=== PATIENT | male | born 1995 | race Caucasian/White ===

== ENCOUNTER 2020-04-30 19:46 | Inpatient (IN) | payer OTHER ==
[2020-04-30] MEDS ORDERED: SODIUM CHLORIDE 1,905 ML IV ONE (20:16)
[2020-04-30 21:05] LABS: BASO % 0.2 % (0-2.0); EOS % 0.4 % (0-4.5); HEMATOCRIT 37.5 % (35.4-49); HEMOGLOBIN 12.9 GM/dL (11.7-16.9); LYMPH % 3.9 % (8-40); MCH 31.2 pg (25.7-33.7); MCHC 34.2 g/dl (32.0-35.9); MEAN PLT VOLUME 6.9 fl (7.5-11.1); MONO % 7.7 % (3.8-10.2); NEUT % 87.8 % (42.8-82.8); PLATELET COUNT 250 K/MM3 (134-434); RBC 4.12 M/mm3 (4.00-5.60); RDW 13.1 % (11.9-15.9); WHITE BLOOD COUNT 10.8 K/mm3 (4.0-10.0)
[2020-04-30 21:11] LABS: INR 1.24 (0.83-1.09); PROTHROMBIN TIME (PATIENT) 14.7 SEC (9.7-13.0)
[2020-04-30 21:14] LABS: ACTIVATED PTT 31.8 SECONDS (25.2-36.5)
[2020-04-30 21:44] LABS: ALBUMIN 3.4 g/dl (3.4-5.0); ALK PHOS 120 U/L (45-117); ANION GAP 15 MMOL/L (8-16); BILIRUBIN,TOTAL 0.5 mg/dL (0.2-1); BLOOD UREA NITROGEN 7.7 mg/dL (7-18); CALCIUM 8.7 mg/dL (8.5-10.1); CHLORIDE 98 mmol/L (98-107); CO2 23 mmol/L (21-32); CREATININE 0.6 mg/dL (0.55-1.3); GLUCOSE,RANDOM 106 mg/dL (74-106); POTASSIUM 3.2 mmol/L (3.5-5.1); SGOT/AST 11 U/L (15-37); SGPT/ALT 35 U/L (13-61); SODIUM 136 mmol/L (136-145); TOT PROT 6.9 g/dl (6.4-8.2)
--- NOTE | 2020-04-30 21:49 | PDOC ---
History of Present Illness - General Chief Complaint: SIRS, Suspected/Possible Stated Complaint: FEVER BACK PAIN Time Seen by Provider: 04/30/20 19:53 - History of Present Illness Initial Comments: César Chamberlain is a 25 y/o male with PMH significant for C2 and C7 fracture, paraplegia, sent in from [facility]. Reports that he has had a fever since yesterday and low back pain. Otherwise reports that his lack of sensation his baseline. No dysuria. Denies chest pain/shortness of breath. Denies nausea/vomiting. Denies abd pain. Unable to assess lower extremities. Past History - Medical History Allergies/Adverse Reactions: Allergies Allergy/AdvReac Type Severity Reaction Status Date / Time No Known Allergies Allergy Verified 04/30/20 19:52 Home Medications: Ambulatory Orders Aa/Hydrolyzed Collagen, Whey [Lps 15-30 Liquid] 30 ml PO BID 05/01/20 Docusate Sodium [Colace -] 300 mg PO HS 05/01/20 Duloxetine HCl [Cymbalta -] 40 mg PO DAILY 05/01/20 Gabapentin [Neurontin -] 400 mg PO Q8H 05/01/20 Ipratropium/Albuterol Sulfate [Iprat-Albut 0.5-3(2.5) mg/3 ml] 3 ml PO TID 05/01/20 Lactulose 20 ml PO BID PRN 05/01/20 Lidocaine [Aspercreme Lidocaine] 1 patch TD DAILY 05/01/20 Mag Hydrox/Al Hydrox/Simeth [Mylanta Oral Suspension -] 30 ml PO TID PRN 05/01/20 Omeprazole Magnesium [Prilosec Otc] 20 mg PO DAILY 05/01/20 Ondansetron [Zofran -] 4 mg PO TID PRN 05/01/20 Polyethylene Glycol 3350 [Miralax (For Bowel Prep) -] 17 gm PO DAILY PRN 05/01/20 Sennosides [Senna] 2 tab PO DAILY PRN 05/01/20 Sodium Phosphate,Zavala-Dibasic [Fleet Enema] 1 can MO DAILY 05/01/20 Tamsulosin HCl [Flomax -] 0.8 mg PO DAILY 05/01/20 Tizanidine HCl [Zanaflex (Nf) -] 4 mg PO Q8H 05/01/20 COPD: No Other medical history: 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 - Surgical History Neurologic Surgery: Yes - Psycho-Social/Smoking History Smoking History: Never smoked - Substance Abuse Hx (Audit-C & DAST Scrn) How often the patient has a drink containing alcohol: Never Score: In Men: 4 or > Positive; In Women: 3 or > Positive: 0 Screen Result (Pos requires Nsg. Audit-10AR): Negative In the last yr the pt used illegal drug/Rx for NonMed reason: No Score: Yes response is considered Positive: 0 Screen Result (Positive result requires Nsg. DAST-10): Negative Review of Systems - Review of Systems Comments:: GENERAL/CONSTITUTIONAL: Reports fever. No weakness._ HEAD, EYES, EARS, NOSE AND THROAT: No change in vision. No change in hearing. No sore throat._ CARDIOVASCULAR: No chest pain or shortness of breath_ RESPIRATORY: Denies cough, hemoptysis_ GASTROINTESTINAL: No nausea, vomiting, diarrhea or constipation._ GENITOURINARY: No dysuria, frequency, or change in urination._ MUSCULOSKELETAL: Reports low back pain. SKIN: No rash_ NEUROLOGIC: No headache, vertigo, loss of consciousness, or change in strength/sensation._ ENDOCRINE: No increased thirst. No abnormal weight change_ HEMATOLOGIC/LYMPHATIC: No anemia, easy bleeding, or history of blood clots._ ALLERGIC/IMMUNOLOGIC: No hives or skin allergy._ *Physical Exam - Vital Signs Last Vital Signs Temp Pulse Resp BP Pulse Ox 102.9 F H 135 H 20 112/70 96 04/30/20 19:49 04/30/20 19:49 04/30/20 19:49 04/30/20 19:49 04/30/20 19:49 - Physical Exam GENERAL: Awake, alert, and oriented to person/place/time, in no acute distress_ HEAD: No signs of trauma, normocephalic, atraumatic _ EYES: PERRLA, EOMI, sclera anicteric, conjunctiva clear_ ENT: Hearing grossly normal, nares patent, oropharynx clear without exudates. No uvular deviation. Moist mucosa_ NECK: Normal ROM, supple, no lymphadenopathy, JVD, or masses_ LUNGS: No distress, speaks in full sentences, clear to auscultation bilaterally _ HEART: Regular rate and rhythm, normal S1 and S2, no murmurs appreciated, pe ripheral pulses normal and equal bilaterally._ ABDOMEN: Soft, nontender, normoactive bowel sounds. No guarding, no rebound. No masses_ BACK: Mild bilateral CVA TTP. EXTREMITIES: Contracted bilateral lower extremities. Decreased sensation at baseline. NEUROLOGICAL: Cranial nerves II through XII grossly intact. Normal speech, no change in sensory or motor function. SKIN: Warm, Dry, normal turgor, no rashes or lesions noted_ ED Treatment Course - LABORATORY CBC & Chemistry Diagram: 05/02/20 09:25 05/02/20 09:25 - ADDITIONAL ORDERS Additional order review: Laboratory Results 04/30/20 04/30/20 20:00 20:00 PT with INR 14.70 H INR 1.24 H PTT (Actin FS) 31.8 Sodium 136 Potassium 3.2 L Chloride 98 Carbon Dioxide 23 Anion Gap 15 BUN 7.7 Creatinine 0.6 Est GFR (CKD-EPI)AfAm 160.83 Est GFR (CKD-EPI)NonAf 138.76 Random Glucose 106 Calcium 8.7 Total Bilirubin 0.5 AST 11 L ALT 35 Alkaline Phosphatase 120 H Troponin I < 0.02 Total Protein 6.9 Albumin 3.4 04/30/20 20:00 RBC 4.12 MCV 91.0 MCHC 34.2 RDW 13.1 MPV 6.9 L Neutrophils % 87.8 H Lymphocytes % 3.9 L Monocytes % 7.7 Eosinophils % 0.4 Basophils % 0.2 - RADIOLOGY Radiology Studies Ordered: Category Date Time Status CHEST X-RAY PORTABLE* [RAD] Stat Radiology 04/30/20 20:16 Taken Medical Decision Making - Medical Decision Making 25M c2 and c7 fx paraplegia presenting today with fever and bilateral CVA ttp. -sepsis work up 04/30/20 21:49 CXR shows spinal hardware in place, otherwise negative for acute intra thoracic pathology. 04/30/20 22:57 Labs and UA reviewed. Laboratory Last Values WBC 10.8 K/mm3 (4.0-10.0) H 04/30/20 20:00 RBC 4.12 M/mm3 (4.00-5.60) 04/30/20 20:00 Hgb 12.9 GM/dL (11.7-16.9) 04/30/20 20:00 Hct 37.5 % (35.4-49) 04/30/20 20:00 MCV 91.0 fl (80-96) 04/30/20 20:00 MCH 31.2 pg (25.7-33.7) 04/30/20 20:00 MCHC 34.2 g/dl (32.0-35.9) 04/30/20 20:00 RDW 13.1 % (11.9-15.9) 04/30/20 20:00 Plt Count 250 K/MM3 (134-434) 04/30/20 20:00 MPV 6.9 fl (7.5-11.1) L 04/30/20 20:00 Absolute Neuts (auto) 9.5 K/mm3 (1.5-8.0) H 04/30/20 20:00 Neutrophils % 87.8 % (42.8-82.8) H 04/30/20 20:00 Lymphocytes % 3.9 % (8-40) L 04/30/20 20:00 Monocytes % 7.7 % (3.8-10.2) 04/30/20 20:00 Eosinophils % 0.4 % (0-4.5) 04/30/20 20:00 Basophils % 0.2 % (0-2.0) 04/30/20 20:00 Nucleated RBC % 0 % (0-0) 04/30/20 20:00 PT with INR 14.70 SEC (9.7-13.0) H 04/30/20 20:00 INR 1.24 (0.83-1.09) H 04/30/20 20:00 PTT (Actin FS) 31.8 SECONDS (25.2-36.5) 04/30/20 20:00 Sodium 136 mmol/L (136-145) 04/30/20 20:00 Potassium 3.2 mmol/L (3.5-5.1) L 04/30/20 20:00 Chloride 98 mmol/L (98-107) 04/30/20 20:00 Carbon Dioxide 23 mmol/L (21-32) 04/30/20 20:00 Anion Gap 15 MMOL/L (8-16) 04/30/20 20:00 BUN 7.7 mg/dL (7-18) 04/30/20 20:00 Creatinine 0.6 mg/dL (0.55-1.3) 04/30/20 20:00 Est GFR (CKD-EPI)AfAm 160.83 04/30/20 20:00 Est GFR (CKD-EPI)NonAf 138.76 04/30/20 20:00 Random Glucose 106 mg/dL (74-106) 04/30/20 20:00 Lactic Acid 2.6 mmol/L (0.4-2.0) H* 04/30/20 20:00 Calcium 8.7 mg/dL (8.5-10.1) 04/30/20 20:00 Total Bilirubin 0.5 mg/dL (0.2-1) 04/30/20 20:00 AST 11 U/L (15-37) L 04/30/20 20:00 ALT 35 U/L (13-61) 04/30/20 20:00 Alkaline Phosphatase 120 U/L (45-117) H 04/30/20 20:00 Troponin I < 0.02 ng/ml (0.00-0.05) 04/30/20 20:00 Total Protein 6.9 g/dl (6.4-8.2) 04/30/20 20:00 Albumin 3.4 g/dl (3.4-5.0) 04/30/20 20:00 Urine Color Yellow 04/30/20 21:00 Urine Appearance Cloudy 04/30/20 21:00 Urine pH 6.5 (5.0-8.0) 04/30/20 21:00 Ur Specific [place] 1.009 (1.010-1.035) L 04/30/20 21:00 Urine Protein 1+ (NEGATIVE) H 04/30/20 21:00 Urine Glucose (UA) Negative (NEGATIVE) 04/30/20 21:00 Urine Ketones Negative (NEGATIVE) 04/30/20 21:00 Urine Blood 2+ (NEGATIVE) H 04/30/20 21:00 Urine Nitrite Positive (NEGATIVE) H 04/30/20 21:00 Urine Bilirubin Negative (NEGATIVE) 04/30/20 21:00 Urine Urobilinogen 1.0 mg/dL (0.2-1.0) 04/30/20 21:00 Ur Leukocyte Esterase 3+ (NEGATIVE) H 04/30/20 21:00 Urine WBC (Auto) 452 /uL (0-25.8) 04/30/20 21:00 Urine RBC (Auto) 16 /uL (0-23.9) 04/30/20 21:00 Urine Casts (Auto) 0 /uL (0-3.1) 04/30/20 21:00 U Epithel Cells (Auto) 1 /uL (0-25.1) 04/30/20 21:00 Urine Bacteria (Auto) >10,000 /uL (0-1359) 04/30/20 21:00 Zosyn started. 05/01/20 0030 D/w inpatient team who accepts the patient for admission. Discharge - Discharge Information Problems reviewed: Yes Clinical Impression/Diagnosis: Sepsis, UTI (urinary tract infection) Condition: Stable - Admission Yes - Follow up/Referral - Patient Discharge Instructions - Post Discharge Activity
[2020-04-30 22:09] LABS: EPI CELLS 1 /uL (0-25.1); HYALINE CASTS 0 /uL (0-3.1); PH,URINE 6.5 (5.0-8.0); URINE APPEARANCE CLOUDY; URINE BILIRUBIN NEGATIVE (NEGATIVE); URINE COLOR YELLOW; URINE GLUCOSE (UA) NEGATIVE (NEGATIVE); URINE KETONE NEGATIVE (NEGATIVE); URINE LEUK ESTERASE 3+ (NEGATIVE); URINE NITRITE POSITIVE (NEGATIVE); URINE PROTEIN 1+ (NEGATIVE); URINE RBC 16 /uL (0-23.9); URINE WBC 452 /uL (0-25.8)
[2020-04-30] MEDS ORDERED: PIPERACILLIN/TAZOB 4.5 GM 4.5 GM in DEXTROSE 5%-WATER 100 ML IVPB ONE (22:27)
--- NOTE | 2020-04-30 22:34 | PDOC ---
Documentation entered by Daniela Zeng SCRIBE, acting as scribe for Juan Sage MD. Juan Sage MD: This documentation has been prepared by the Karri bonilla Brenda, SCRIBE, under my direction and personally reviewed by me in its entirety. I confirm that the documentation accurately reflects all work, treatment, procedures, and medical decision making performed by me. Attending Attestation - Resident Resident Name: Dax Aiken - ED Attending Attestation I have performed the following: I have examined & evaluated the patient, The case was reviewed & discussed with the resident, I agree w/resident's findings & plan, Exceptions are as noted - HPI HPI: 04/30/20 21:43 The patient is a 25 year old female, with a significant PMH of paraplegia who presents to the emergency department [facility] from Rehab for evaluation of a subjective fever and lower back pain for 1 day. The patient reports being incontinent At baseline, He does endorse minimal sensation in the lower extremities. He denies any other symptoms including dysuria, foul-smelling urine, diarrhea, abdominal pain, chest pain, cough, lightheadedness, sore throat, Headache, neck pain. Allergies: NKA - Physicial Exam PE: 04/30/20 22:24 GENERAL: The patient is awake, alert, and fully oriented, Nontoxic - in no acute distress. HEAD: Normocephalic, atraumatic. EYES: extraocular movements intact, sclera anicteric, conjunctiva clear. ENT: Normal voice, Moist mucous membranes. NECK: Normal range of motion, supple LUNGS: Breath sounds equal, clear to auscultation bilaterally. No wheezes, no rhonchi, no rales. HEART: Regular rate and rhythm, normal S1 and S2 without murmur, rub or gallop. ABDOMEN: Soft, nontender, No guarding, no rebound. Mild right CVA tenderness EXTREMITIES: No obvious wounds or ulcers Back:, No erythema, fluctuance, areas of focal tenderness. NEUROLOGICAL: No facial assymetry, Normal speech, PSYCH: Normal mood, normal affect. SKIN: Hot to touch, Dry, normal turgor,No sacral decubitus ulcers appreciated - Medical Decision Making 04/30/20 21:40 25y M hx of spina fx cb paraplegia presents with fever and lower back pain. Pt usually incontinent and insensatem wears dipers. [facility] 04[facility] 22:24 Differential includes possible pyelonephritis, no clinical signs of spinal epidural abscess, Or wounds. Seracult pneumonia No clinical signs of Meningitis Sepsis order set obtained we will give the patient Tylenol, fluids, will reassess 04/30/20 22:25 Patient's UA consistent with UTI likely Pyelonephritis with a CVA tenderness will start antibiotics admit for further management. Heart Score/ECG Review - ECG Impressions Comment:: 05/01/20 00:15 Twelve-lead EKG was performed and reviewed by me. There is normal sinus rhythm with a Rate of [address] changes suggestive of acute ischemia Impression: Sinus tachycardia Discharge - Discharge Information Problems reviewed: Yes Clinical Impression/Diagnosis: Sepsis Qualifiers: Sepsis type: sepsis due to unspecified organism Sepsis acute organ dysfunction status: unspecified Qualified Code(s): A41.9 - Sepsis, unspecified organism UTI (urinary tract infection) Qualifiers: Urinary tract infection type: acute pyelonephritis Qualified Code(s): N10 - Acute pyelonephritis Condition: Stable - Follow up/Referral - Patient Discharge Instructions - Post Discharge Activity
[2020-04-30] MEDS ORDERED: PIPERACILLIN/TAZOB 4.5 GM 4.5 GM/100 ML BAG IVPB ONE (22:37)
--- NOTE | 2020-05-01 00:03 | PN ---
Teaching Attending Note Name of Resident: Ro Lehman ATTENDING PHYSICIAN STATEMENT I saw and evaluated the patient. I reviewed the resident's note and discussed the case with the resident. I agree with the resident's findings and plan as documented. SUBJECTIVE: Patient is a 25 year old woman with a PMH of Paraplegia (?C2, C7 fracture) and GERD who presents to the ER from [facility] for evaluation of a fever and lower back pain for 1 day. The patient reports being incontinent at baseline, wears diapers and has minimal sensation in the lower extremities. Denies dysuria, foul-smelling urine, diarrhea, abdominal pain, chest pain, SOB, cough, lightheadedness, sore throat, headache or neck pain. Denies alcohol, tobacco or illicit drug use. No sick contacts or recent travels. Family history is unremarkable. OBJECTIVE: Alert Vital Signs Period Temp Pulse Resp BP Sys/Yoo Pulse Ox Last 24 Hr 99.2 F-102.9 F 115-135 20-20 112-128/70-76 96-96 HEENT: No Jaundice, eye redness or discharge, PERRLA, EOMI. Normocephalic, atraumatic. External ears are normal and hearing is grossly intact. No nasal discharge. Neck: Supple, nontender. No palpable adenopathy or thyromegaly. No JVD Chest: Good effort. Clear to auscultation and percussion. Heart: Regular. No S3, rub or murmur Abdomen: Not distended, soft, left CVAT and no HSM. No rebound or guarding. Normal bowel sounds. Ext: Peripheral pulses intact. No leg edema. Skin: Warm and dry. No petechiae, rash or ecchymosis. Neuro: Alert. Oriented x3. CN 2-12 grossly intact. Paraplegia. Psych: Appropriate mood and affect. Good insight. Abnormal Lab Results 04/30/20 04/30/20 04/30/20 20:00 20:00 20:00 WBC 10.8 H MPV 6.9 L Absolute Neuts (auto) 9.5 H Neutrophils % 87.8 H Lymphocytes % 3.9 L PT with INR 14.70 H INR 1.24 H Potassium 3.2 L Lactic Acid AST 11 L Alkaline Phosphatase 120 H Ur Specific [place] Urine Protein Urine Blood Urine Nitrite Ur Leukocyte Esterase 07/03/20 07/03/20 20:00 21:00 WBC MPV Absolute Neuts (auto) Neutrophils % Lymphocytes % PT with INR INR Potassium Lactic Acid 2.6 H* AST Alkaline Phosphatase Ur Specific [place] 1.009 L Urine Protein 1+ H Urine Blood 2+ H Urine Nitrite Positive H Ur Leukocyte Esterase 3+ H Current Medications Generic Name Dose Route Start Last Admin Trade Name Sudeepq PRN Reason Stop Dose Admin Enoxaparin Sodium 40 mg 05/01/20 10:00 Lovenox - SQ DAILY KAYLEE Sodium Chloride 1,000 mls @ 100 mls/hr 05/01/20 02:00 05/01/20 02:24 Normal Saline - IV 100 mls/hr ASDIR KAYLEE Administration Piperacillin Sod/Tazobactam 50 mls @ 100 mls/hr 05/01/20 02:00 Sod 3.375 gm/ Dextrose IVPB Q8H-IV KAYLEE Protocol Piperacillin Sod/Tazobactam 50 mls @ 100 mls/hr 05/01/20 02:00 05/01/20 02:24 Sod 3.375 gm/ Dextrose IVPB 05/01/20 18:29 100 mls/hr Q8H-IV KAYLEE Administration Protocol ASSESSMENT AND PLAN: 1. Sepsis due to Pyelonephritis - CXR shows spinal hardware in place but no evidence of acute lung disease. Sepsis workup done. Patient started on IV Zosyn and IV NS according to sepsis protocol. Will trend lactic acid. Hypokalemia is unexplained. Will check serum magnesium, give IV and PO KCL. Will get kidney sonogram to evaluate for possible abscess. Viral testing for COVID-19 ordered and patient placed on airborne, droplet and contact isolation. EKG shows sinus tachycardia at 105/minute and QTc [address]-T wave changes. Initial troponin is negative. Will continue comprehensive care for all of patients comorbid conditions including paraplegia care - frequent repositioning to avoid decubitus ulcers. 2. DVT prophylaxis - Lovenox 40 mg SQ q 24 hours. 3. Advance directives - Full code
[2020-05-01] MEDS ORDERED: PIPERACILLIN/TAZOB 3.375 GM 3.375 GM in DEXTROSE 5%-WATER - 50 ML IVPB SCH (02:00)
[2020-05-01] MEDS ORDERED: PIPERACILLIN/TAZOB 3.375 GM 3.375 GM/50 ML BAG IVPB ONE ×3 (02:19→18:07)
[2020-05-01] MEDS: PIPERACILLIN/TAZOB 3.375 GM 3.375 GM in DEXTROSE 5%-WATER - 50 ML IVPB SCH ×3 (02:24→18:14)
[2020-05-01] MEDS: SODIUM CHLORIDE 1,000 ML IV SCH (02:24)
--- NOTE | 2020-05-01 04:19 | HP ---
CHIEF COMPLAINT: lower abdominal pain PCP: HISTORY OF PRESENT ILLNESS: 25 yo M PMH herbie paraplegia, GERD, C2-C7 fx [facility] of fever and lower abdominal pain. pt is unable to provide full history but does endorse lower abdominal pain. he denies chest pain or shortness of breath. denies any sensory deficits in extremities. ER course was notable for: (1) NS (2)Zosyn (3)+UA PAST MEDICAL HISTORY: see HPI PAST SURGICAL HISTORY: unknown Allergies No Known Allergies Allergy (Verified 04/30/20 19:52) HOME MEDICATIONS: REVIEW OF SYSTEMS CONSTITUTIONAL: Present: fever Absent: fever, chills, diaphoresis, generalized weakness, malaise, loss of appetite, weight change HEENT: Absent: rhinorrhea, nasal congestion, throat pain, throat swelling, difficulty swallowing, mouth swelling, ear pain, eye pain, visual changes CARDIOVASCULAR: Absent: chest pain, syncope, palpitations, irregular heart rate, lightheadedness, peripheral edema RESPIRATORY: Absent: cough, shortness of breath, dyspnea with exertion, orthopnea, wheezing, stridor, hemoptysis GASTROINTESTINAL: Absent: abdominal pain, abdominal distension, nausea, vomiting, diarrhea, constipation, melena, hematochezia GENITOURINARY: Absent: dysuria, frequency, urgency, hesitancy, hematuria, flank pain, genital pain MUSCULOSKELETAL: Absent: myalgia, arthralgia, joint swelling, back pain, neck pain SKIN: Absent: rash, itching, pallor HEMATOLOGIC/IMMUNOLOGIC: Absent: easy bleeding, easy bruising, lymphadenopathy, frequent infections ENDOCRINE: Absent: unexplained weight gain, unexplained weight loss, heat intolerance, cold intolerance NEUROLOGIC: Absent: headache, focal weakness or paresthesias, dizziness, unsteady gait, seizure, mental status changes, bladder or bowel incontinence PHYSICAL EXAMINATION Vital Signs - 24 hr 04/30/20 04/30/20 05/01/20 19:49 22:34 03:03 Temperature 102.9 F H 99.2 F Pulse Rate 135 H Pulse Rate [ 115 H 105 H Right] Respiratory 20 20 18 Rate Blood Pressure 112/70 Blood Pressure 128/76 106/68 [Right Arm] O2 Sat by Pulse 96 96 97 Oximetry (%) GENERAL: Awake, alert, and fully oriented, in no acute distress. HEAD: Normal with no signs of trauma. LUNGS: Breath sounds equal, clear to auscultation bilaterally. No accessory muscle use. HEART: Regular rate and rhythm, normal S1 and S2 without murmur, rub or gallop. ABDOMEN: Soft, nontender, not distended, normoactive bowel sounds, no guarding, no rebound, no masses. UPPER EXTREMITIES: 2+ pulses, warm, well-perfused. No cyanosis. No clubbing. No peripheral edema. LOWER EXTREMITIES: 2+ pulses, warm, well-perfused. No calf tenderness. No peripheral edema. SKIN: Warm, dry, normal turgor, no rashes or lesions noted, normal capillary refill. Laboratory Last Values WBC 10.8 K/mm3 (4.0-10.0) H 04/30/20 20:00 RBC 4.12 M/mm3 (4.00-5.60) 04/30/20 20:00 Hgb 12.9 GM/dL (11.7-16.9) 04/30/20 20:00 Hct 37.5 % (35.4-49) 04/30/20 20: MCV 91.0 fl (80-96) 04/30/20 20:00 MCH 31.2 pg (25.7-33.7) 04/30/20 20: MCHC 34.2 g/dl (32.0-35.9) 04/30/20 20:00 RDW 13.1 % (11.9-15.9) 04/30/20 20:00 Plt Count 250 K/MM3 (134-434) 04/30/20 20:00 MPV 6.9 fl (7.5-11.1) L 04/30/20:00 Absolute Neuts (auto) 9.5 K/mm3 (1.5-8.0) H 04/30/20 20:00 Neutrophils % 87.8 % (42.8-82.8) H 04/30/20 20:00 Lymphocytes % 3.9 % (8-40) L 04/30/20 20:00 Monocytes % 7.7 % (3.8-10.2) 04/30/20 20:00 Eosinophils % 0.4 % (0-4.5) 04/30/20 20: Basophils % 0.2 % (0-2.0) 04/30/20 20:00 Nucleated RBC % 0 % (0-0) 04/30/20 20:00 PT with INR 14.70 SEC (9.7-13.0) H 04/30/20 20:00 INR 1.24 (0.83-1.09) H 04/30/20 20:00 PTT (Actin FS) 31.8 SECONDS (25.2-36.5) 04/30/20 20:00 Sodium 136 mmol/L (136-145) 04/30/20 20:00 Potassium 3.2 mmol/L (3.5-5.1) L 04/30/20 20:00 Chloride 98 mmol/L (98-107) 04/30/20 20:00 Carbon Dioxide 23 mmol/L (21-32) 04/30/20 20:00 Anion Gap 15 MMOL/L (8-16) 04/30/20 20:00 BUN 7.7 mg/dL (7-18) 04/30/20 20:00 Creatinine 0.6 mg/dL (0.55-1.3) 04/30/20 20:00 Est GFR (CKD-EPI)AfAm 160.83 04/30/20 20:00 Est GFR (CKD-EPI)NonAf 138.76 04/30/20 20:00 Random Glucose 106 mg/dL (74-106) 04/30/20 20:00 Lactic Acid 1.4 mmol/L (0.4-2.0) 05/01/20 02:12 Calcium 8.7 mg/dL (8.5-10.1) 04/30/20 20:00 Total Bilirubin 0.5 mg/dL (0.2-1) 04/30/20 20:00 AST 11 U/L (15-37) L 04/30/20 20:00 ALT 35 U/L (13-61) 04/30/20 20:00 Alkaline Phosphatase 120 U/L (45-117) H 04/30/20 20:00 Troponin I < 0.02 ng/ml (0.00-0.05) 04/30/20 20:00 Total Protein 6.9 g/dl (6.4-8.2) 04/30/20 20:00 Albumin 3.4 g/dl (3.4-5.0) 04/30/20 20:00 Urine Color Yellow 04/30/20 21:00 Urine Appearance Cloudy 04/30/20 21:00 Urine pH 6.5 (5.0-8.0) 04/30/20 21:00 Ur Specific [place] 1.009 (1.010-1.035) L 04/30/20 21:00 Urine Protein 1+ (NEGATIVE) H 04/30/20 21:00 Urine Glucose (UA) Negative (NEGATIVE) 04/30/20 21:00 Urine Ketones Negative (NEGATIVE) 04/30/20 21:00 Urine Blood 2+ (NEGATIVE) H 04/30/20 21:00 Urine Nitrite Positive (NEGATIVE) H 04/30/20 21:00 Urine Bilirubin Negative (NEGATIVE) 04/30/20 21:00 Urine Urobilinogen 1.0 mg/dL (0.2-1.0) 04/30/20 21:00 Ur Leukocyte Esterase 3+ (NEGATIVE) H 04/30/20 21:00 Urine WBC (Auto) 452 /uL (0-25.8) 04/30/20 21:00 Urine RBC (Auto) 16 /uL (0-23.9) 04/30/20 21:00 Urine Casts (Auto) 0 /uL (0-3.1) 04/30/20 21:00 U Epithel Cells (Auto) 1 /uL (0-25.1) 04/30/20 21:00 Urine Bacteria (Auto) >10,000 /uL (0-1359) 04/30/20 21:00 ASSESSMENT/PLAN: 25 yo M PMH herbie paraplegia, GERD, C2-C7 fx BIB[facility] from [facility] for 1 day of fever and lower abdominal pain. pt is admitted for pyelonephritis Sepsis 2/2 pyelonephritis - lactic acidosis , leukocytosis, febrile - + UA noted - pending BCx, UCx - pending renal sonogram to assess severity / abscess - ID consult - c/w IVF . c/w Zosyn - lactic acidosis improved F/E/N - IV NS @ 100 cc - monitor lytes - watch K, 40 Kdur given DVT ppx: lovenox 40 Dispo: admit to medicine Visit type - Emergency Visit Emergency Visit: Yes ED Registration Date: 05/01/20 Care time: The patient presented to the Emergency Department on the above date and was hospitalized for further evaluation of their emergent condition. - New Patient This patient is new to me today: Yes - Critical Care Critical Care patient: No ATTENDING PHYSICIAN STATEMENT I saw and evaluated the patient. I reviewed the resident's note and discussed the case with the resident. I agree with the resident's findings and plan as documented. SUBJECTIVE: OBJECTIVE: ASSESSMENT AND PLAN:
[2020-05-01] MEDS ORDERED: POTASSIUM CHLORIDE TABS 20 MEQ TABLET.ER (FP) PO ONE ×2 (04:35→06:09)
[2020-05-01 07:40] LABS: BASO % 0.2 % (0-2.0); EOS % 0.4 % (0-4.5); HEMATOCRIT 37.6 % (35.4-49); HEMOGLOBIN 12.6 GM/dL (11.7-16.9); LYMPH % 11.2 % (8-40); MCH 30.4 pg (25.7-33.7); MCHC 33.6 g/dl (32.0-35.9); MEAN CELL VOLUME 90.7 fl (80-96); MEAN PLT VOLUME 6.7 fl (7.5-11.1); MONO % 11.2 % (3.8-10.2); PLATELET COUNT 285 K/MM3 (134-434); RBC 4.15 M/mm3 (4.00-5.60); RDW 13.2 % (11.9-15.9)
[2020-05-01 08:04] LABS: ALBUMIN 3.1 g/dl (3.4-5.0); BLOOD UREA NITROGEN 5.4 mg/dL (7-18); CALCIUM 8.7 mg/dL (8.5-10.1); MAGNESIUM 2.5 mg/dL (1.8-2.4); POTASSIUM 4.1 mmol/L (3.5-5.1)
[2020-05-01 08:08] LABS: BILIRUBIN,TOTAL 0.5 mg/dL (0.2-1); CREATININE 0.5 mg/dL (0.55-1.3); PHOSPHOROUS 3.5 mg/dL (2.5-4.9); TOT PROT 6.6 g/dl (6.4-8.2)
[2020-05-01] MEDS ORDERED: ENOXAPARIN NA (PORCINE) 40 MG/0.4 ML DISP.SYRIN SQ ONE (10:24)
[2020-05-01] MEDS: ENOXAPARIN NA (PORCINE) 40 MG/0.4 ML DISP.SYRIN SQ SCH (10:39)
[2020-05-02] MEDS ORDERED: ACETAMINOPHEN 325 MG TABLET (FP) PO PRN (02:04)
[2020-05-02] MEDS: ACETAMINOPHEN 325 MG TABLET (FP) PO PRN (02:27)
[2020-05-02] MEDS: SODIUM CHLORIDE 1,000 ML IV SCH ×2 (02:29→21:48)
[2020-05-02] MEDS: ENOXAPARIN NA (PORCINE) 40 MG/0.4 ML DISP.SYRIN SQ SCH (09:23)
[2020-05-02 09:35] LABS: BASO % 0.3 % (0-2.0); EOS % 0.6 % (0-4.5); HEMATOCRIT 38.2 % (35.4-49); LYMPH % 12.9 % (8-40); MCH 30.9 pg (25.7-33.7); MCHC 34.1 g/dl (32.0-35.9); MEAN CELL VOLUME 90.7 fl (80-96); MEAN PLT VOLUME 6.8 fl (7.5-11.1); MONO % 13.1 % (3.8-10.2); NEUT % 73.1 % (42.8-82.8); PLATELET COUNT 310 K/MM3 (134-434); RBC 4.21 M/mm3 (4.00-5.60); RDW 12.9 % (11.9-15.9); WHITE BLOOD COUNT 12.6 K/mm3 (4.0-10.0)
[2020-05-02] MEDS ORDERED: cefTRIAXone SODIUM 1 GM VIAL ONE (09:57)
[2020-05-02] MEDS ORDERED: DEXTROSE 5%-WATER - 50 ML IVPB ONE (09:57)
[2020-05-02] MEDS ORDERED: CEFTRIAXONE 1 GM in DEXTROSE 5%-WATER - 50 ML IVPB ONE (10:00)
[2020-05-02 10:02] LABS: ALBUMIN 3.2 g/dl (3.4-5.0); BLOOD UREA NITROGEN 7.4 mg/dL (7-18); CALCIUM 9.1 mg/dL (8.5-10.1); POTASSIUM 3.7 mmol/L (3.5-5.1)
[2020-05-02 10:07] LABS: BILIRUBIN,TOTAL 0.7 mg/dL (0.2-1); CREATININE 0.4 mg/dL (0.55-1.3); TOT PROT 6.7 g/dl (6.4-8.2)
[2020-05-02 10:47] LABS: ANISOCYTOSIS 1+; MACROCYTOSIS 1+; PLATELET ESTIMATE NORMAL
--- NOTE | 2020-05-02 14:07 | EKG ---
Test Reason : Blood Pressure : / mmHG Vent. Rate : 093 BPM Atrial Rate : 093 BPM P-R Int : 174 ms QRS Dur : 092 ms QT Int : 336 ms P-R-T Axes : 025 033 048 degrees QTc Int : 417 ms NORMAL SINUS RHYTHM T WAVE ABNORMALITY, CONSIDER ANTERIOR ISCHEMIA ABNORMAL ECG WHEN COMPARED WITH ECG OF 30-APR-2020 23:35, T WAVE INVERSION NOW EVIDENT IN ANTERIOR LEADS Confirmed by BREONNA HINOJOSA MD ([id number]) on 05/02/2020 2:06:35 PM Referred By: Confirmed By:BREONNA HINOJOSA MD
--- NOTE | 2020-05-02 14:10 | EKG ---
Test Reason : Blood Pressure : / mmHG Vent. Rate : 105 BPM Atrial Rate : 105 BPM P-R Int : 184 ms QRS Dur : 102 ms QT Int : 334 ms P-R-T Axes : 026 032 047 degrees QTc Int : 441 ms SINUS TACHYCARDIA OTHERWISE NORMAL ECG NO PREVIOUS ECGS AVAILABLE Confirmed by BREONNA HINOJOSA MD ([id number]) on 05/02/2020 2:09:49 PM Referred By: Confirmed By:BREONNA HINOJOSA MD
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
--- NOTE | 2020-05-02 21:40 | PN ---
Progress Note (short form) - Note Progress Note: ID CONSULT DICTATED UTI R/O SEPSIS SECONDARY TO UTI PARAPLEGIA AWAIT C/S CONTINUE EMPIRIC CEFTRIAXONE
[2020-05-03] MEDS ORDERED: cefTRIAXone SODIUM 1 GM VIAL ONE (09:27)
[2020-05-03] MEDS ORDERED: DEXTROSE 5%-WATER - 50 ML IVPB ONE (09:27)
[2020-05-03] MEDS: ENOXAPARIN NA (PORCINE) 40 MG/0.4 ML DISP.SYRIN SQ SCH (09:31)
[2020-05-03] MEDS ORDERED: CEFTRIAXONE 1 GM in DEXTROSE 5%-WATER - 50 ML IVPB SCH (10:00)
--- NOTE | 2020-05-03 10:04 | CONS ---
INFECTIOUS DISEASE CONSULTATION DATE OF CONSULTATION: DATE OF DICTATION: 05/02/2020 HISTORY: The patient is a 25-year-old Iranian-speaking male who is evaluated for possible urosepsis. History was obtained from the chart as he is primarily Iranian speaking. He has a history of spinal cord injury and paraplegia. He is a resident of [facility]. He was transferred to the hospital after he was noted to have fever for 1 day prior to admission associated with low back pain. He was evaluated in the emergency room where he was noted to have pyuria, elevated white blood cell count and lactic acidosis. He was empirically treated with ceftriaxone. Patient suffers from paraplegia. He denies any dysuria or hematuria. PAST MEDICAL HISTORY: Positive for paraplegia, gastroesophageal reflux. ALLERGIES: No known allergies. MEDICATIONS: Include ceftriaxone, Lovenox, Tylenol. SOCIAL HISTORY: [facility]. Nonsmoker. Nondrinker. LABORATORY DATA: White count 12.6, creatinine 0.4, lactic acid 2.6. Urine analysis 452 white cells. Blood cultures preliminarily negative. Urine culture growing lactose extract mixer. PHYSICAL EXAMINATION: General: He is awake and alert. He is not acutely toxic appearing. Vital Signs: Temperature 98.4, T-max 101.5, blood pressure 105/63, pulse 83 regular, respirations 18 per minute. HEENT: Sclerae are anicteric. Heart: Sounds S1, S2. Lungs: Clear. Abdomen: Soft. No suprapubic tenderness. Extremities: Negative for edema. IMPRESSION: 1. Urinary tract infection, rule out sepsis secondary to urinary tract infection. 2. Paraplegia. 3. Lactic acidosis. 4. Leukocytosis. Await cultures. Continue empiric ceftriaxone. Case discussed with patient's mother present at the time of the examination. Thank you for the kind referral. HAILE PERDOMO M.D. [id number]
[2020-05-03] MEDS ORDERED: MEROPENEM 1 GM in DEXTROSE 5%-WATER 100 ML IVPB SCH ×2 (11:15→11:30)
[2020-05-03] MEDS ORDERED: DEXTROSE 5%-WATER 100 ML IVPB ONE ×2 (12:59→18:07)
[2020-05-03] MEDS ORDERED: MEROPENEM 1 GM VIAL (RESTRICTED TO ID) IVPB ONE ×2 (12:59→18:07)
[2020-05-03] MEDS: SODIUM CHLORIDE 1,000 ML IV SCH ×2 (13:01→21:55)
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
[2020-05-03] MEDS: MEROPENEM 1 GM in DEXTROSE 5%-WATER 100 ML IVPB SCH (18:19)
--- NOTE | 2020-05-03 21:47 | CON.GU ---
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) Gastrointestinal: Yes: GERD Renal/: Yes: Hematuria, UTI Infectious Disease: Yes: Other (uti esbl e-coli) - Alcohol/Substance Use Hx Alcohol Use: No History of Substance Use: reports: None - Smoking History Smoking history: Never smoked - Social History History of Recent Travel: No Home Medications - Allergies Allergies/Adverse Reactions: Allergies Allergy/AdvReac Type Severity Reaction Status Date / Time No Known Allergies Allergy Verified 04/30/20 19:52 - Home Medications Home Medications: Ambulatory Orders Aa/Hydrolyzed Collagen, Whey [Lps 15-30 Liquid] 30 ml PO BID 05/01/20 Docusate Sodium [Colace -] 300 mg PO HS 05/01/20 Duloxetine HCl [Cymbalta -] 40 mg PO DAILY 05/01/20 Gabapentin [Neurontin -] 400 mg PO Q8H 05/01/20 Ipratropium/Albuterol Sulfate [Iprat-Albut 0.5-3(2.5) mg/3 ml] 3 ml PO TID 05/01/20 Lactulose 20 ml PO BID PRN 05/01/20 Lidocaine [Aspercreme Lidocaine] 1 patch TD DAILY 05/01/20 Mag Hydrox/Al Hydrox/Simeth [Mylanta Oral Suspension -] 30 ml PO TID PRN 05/01/20 Omeprazole Magnesium [Prilosec Otc] 20 mg PO DAILY 05/01/20 Ondansetron [Zofran -] 4 mg PO TID PRN 05/01/20 Polyethylene Glycol 3350 [Miralax (For Bowel Prep) -] 17 gm PO DAILY PRN 05/01/20 Sennosides [Senna] 2 tab PO DAILY PRN 05/01/20 Sodium Phosphate,[place]-Dibasic [Fleet Enema] 1 can [place] DAILY 05/01/20 Tamsulosin HCl [Flomax -] 0.8 mg PO DAILY 05/01/20 Tizanidine HCl [Zanaflex (Nf) -] 4 mg PO Q8H 05/01/20 Physical Exam- Vital Signs: Vital Signs Temperature 99.1 F 05/03/20 18:00 Pulse Rate 61 05/03/20 18:00 Respiratory Rate 18 05/03/20 18:00 Blood Pressure 157/105 H 05/03/20 18:00 O2 Sat by Pulse Oximetry (%) 97 05/03/20 09:00 Labs: CBC, BMP 05/02/20 09:25 05/02/20 09:25 Assessment/Plan pt. is paraplegic with overflow incontenence and rec. uroseosis. Will need a suprapubic cystostomy
[2020-05-03] MEDS: ACETAMINOPHEN 325 MG TABLET (FP) PO PRN (21:54)
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
[2020-05-04] MEDS ORDERED: MEROPENEM 1 GM VIAL (RESTRICTED TO ID) IVPB ONE ×3 (02:51→17:41)
[2020-05-04] MEDS: MEROPENEM 1 GM in DEXTROSE 5%-WATER 100 ML IVPB SCH ×3 (02:52→17:51)
[2020-05-04] MEDS ORDERED: DEXTROSE 5%-WATER 100 ML IVPB ONE ×3 (02:52→17:41)
[2020-05-04] MEDS: SODIUM CHLORIDE 1,000 ML IV SCH (02:59)
[2020-05-04 08:29] LABS: BASO % 0.4 % (0-2.0); EOS % 2.4 % (0-4.5); HEMATOCRIT 39.3 % (35.4-49); HEMOGLOBIN 13.4 GM/dL (11.7-16.9); LYMPH % 21.6 % (8-40); MCH 30.8 pg (25.7-33.7); MCHC 34.1 g/dl (32.0-35.9); MEAN CELL VOLUME 90.3 fl (80-96); MEAN PLT VOLUME 6.8 fl (7.5-11.1); MONO % 8.3 % (3.8-10.2); NEUT % 67.3 % (42.8-82.8); PLATELET COUNT 402 K/MM3 (134-434); RBC 4.36 M/mm3 (4.00-5.60); RDW 13.1 % (11.9-15.9); WHITE BLOOD COUNT 9.2 K/mm3 (4.0-10.0)
[2020-05-04 08:39] LABS: BILIRUBIN,TOTAL 0.6 mg/dL (0.2-1); BLOOD UREA NITROGEN 9.3 mg/dL (7-18); CALCIUM 8.9 mg/dL (8.5-10.1); CREATININE 0.4 mg/dL (0.55-1.3); MAGNESIUM 2.4 mg/dL (1.8-2.4); POTASSIUM 3.6 mmol/L (3.5-5.1); TOT PROT 6.6 g/dl (6.4-8.2)
--- NOTE | 2020-05-04 09:22 | PN ---
Teaching Attending Note Name of Resident: Mceca Jin ATTENDING PHYSICIAN STATEMENT I saw and evaluated the patient. I reviewed the resident's note and discussed the case with the resident. I agree with the resident's findings and plan as documented. SUBJECTIVE: OBJECTIVE: Vital Signs Temperature 99.1 F 05/04/20 06:00 Pulse Rate 66 05/04/20 06:00 Respiratory Rate 18 05/04/20 06:00 Blood Pressure 104/71 05/04/20 06:00 O2 Sat by Pulse Oximetry (%) 98 05/03/20 21:00 General: Young man comfortable, not in distress HEENT mucous membranes moist, no anemia, no jaundice, PERRLA, no nystagmus Neck: No JVD, supple, no bruit, thyroid palpably normal, normal carotid pulsations. Chest: Nontender, clear to auscultation bilaterally CVS: S1-S2 regular no murmur/gallop/rub Abdomen: Nondistended, soft, bowel sounds present. Extremities: Contractures CLINICAL NURSE SPECIALIST: AO X3 , bilateral paraplegia traumatic no gross motor sensory deficit CBC, BMP 05/04/20 07:15 05/04/20 06:00 Urine culture: ESBL E. coli Active Medications Acetaminophen (Tylenol -) 650 mg PO Q6H PRN PRN Reason: FEVER Last Admin: 05/03/20 21:54 Dose: 650 mg Documented by: Enoxaparin Sodium (Lovenox -) 40 mg SQ DAILY [facility] Last Admin: 05/03/20 09:31 Dose: 40 mg Documented by: Sodium Chloride (Normal Saline -) 1,000 mls @ 100 mls/hr IV ASDIR [facility] Last Admin: 05/04/20 02:59 Dose: Not Given Documented by: Meropenem 1 gm/ Dextrose 100 mls @ 200 mls/hr IVPB Q8H-IV [facility] Last Admin: 05/04/20 02:52 Dose: 200 mls/hr Documented by: ASSESSMENT AND PLAN: 25-year-old man paraplegic with contractures presented UTI with sepsis grew ESBL E. coli with urinary retention, evaluated by recommended suprapubic cystostomy for retention overflow. UTI with sepsis: Continue meropenem Urinary retention: Due to paraplegia required suprapubic cystostomy for recurrent UTI.
[2020-05-04] MEDS: ENOXAPARIN NA (PORCINE) 40 MG/0.4 ML DISP.SYRIN SQ SCH (09:28)
[2020-05-04 13:02] LABS: ANISOCYTOSIS 0; MACROCYTOSIS 0; PLATELET ESTIMATE NORMAL
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
[2020-05-05] MEDS ORDERED: DEXTROSE 5%-WATER 100 ML IVPB ONE ×3 (02:21→17:38)
[2020-05-05] MEDS ORDERED: MEROPENEM 1 GM VIAL (RESTRICTED TO ID) IVPB ONE ×3 (02:21→17:38)
[2020-05-05] MEDS: MEROPENEM 1 GM in DEXTROSE 5%-WATER 100 ML IVPB SCH ×3 (02:29→17:39)
[2020-05-05] MEDS: SODIUM CHLORIDE 1,000 ML IV SCH ×2 (02:29→17:39)
--- NOTE | 2020-05-05 07:47 | PN ---
Teaching Attending Note Name of Resident: Mecca Jin ATTENDING PHYSICIAN STATEMENT I saw and evaluated the patient. I reviewed the resident's note and discussed the case with the resident. I agree with the resident's findings and plan as documented. SUBJECTIVE: Patient remained afebrile no acute, today soup bladder scan shows 300 cc retention OBJECTIVE: Vital Signs Temperature 98.0 F 05/05/20 05:50 Pulse Rate 86 05/05/20 05:50 Respiratory Rate 20 05/05/20 05:50 Blood Pressure 98/61 05/05/20 05:50 O2 Sat by Pulse Oximetry (%) 97 05/04/20 21:00 General: Young man comfortable, not in distress HEENT mucous membranes moist, no anemia, no jaundice, PERRLA, no nystagmus Neck: No JVD, supple, no bruit, thyroid palpably normal, normal carotid pulsations. Chest: Nontender, clear to auscultation bilaterally CVS: S1-S2 regular no murmur/gallop/rub Abdomen: Palpable urinary bladder: Nondistended, soft, bowel sounds present. 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 coli Active Medications Acetaminophen (Tylenol -) 650 mg PO Q6H PRN PRN Reason: FEVER Last Admin: 05/03/20 21:54 Dose: 650 mg Documented by: Enoxaparin Sodium (Lovenox -) 40 mg SQ DAILY [facility] Last Admin: 05/04/20 09:28 Dose: 40 mg Documented by: Sodium Chloride (Normal Saline -) 1,000 mls @ 100 mls/hr IV ASDIR [facility] Last Admin: 05/05/20 02:29 Dose: 100 mls/hr Documented by: Meropenem 1 gm/ Dextrose 100 mls @ 200 mls/hr IVPB Q8H-IV [facility] Last Admin: 05/05/20 02:29 Dose: 200 mls/hr Documented by: ASSESSMENT AND PLAN: 25-year-old man paraplegic with contractures presented UTI with sepsis grew ESBL E. coli with urinary retention, evaluated by recommended suprapubic cystostomy for retention overflow. UTI with sepsis: Continue meropenem antibiotic day 6 remained afebrile Urinary retention: Due to paraplegia required suprapubic cystostomy for recurrent UTI. If patient is not willing for suprapubic cystostomy can be discharged on 2 weeks of IV antibiotic at [facility] suprapubic cystostomy can be performed as an outpatient will discuss with family Traumatic paraplegia: DVT prophylaxis.
[2020-05-05 09:21] LABS: BASO % 0.4 % (0-2.0); EOS % 3.1 % (0-4.5); HEMATOCRIT 40.7 % (35.4-49); HEMOGLOBIN 13.6 GM/dL (11.7-16.9); MCH 30.2 pg (25.7-33.7); MCHC 33.4 g/dl (32.0-35.9); MEAN CELL VOLUME 90.4 fl (80-96); MEAN PLT VOLUME 6.6 fl (7.5-11.1); MONO % 6.5 % (3.8-10.2); PLATELET COUNT 455 K/MM3 (134-434); RDW 12.7 % (11.9-15.9); WHITE BLOOD COUNT 7.8 K/mm3 (4.0-10.0)
--- NOTE | 2020-05-05 09:22 | PN ---
Physical Exam: SUBJECTIVE: Patient seen and examined OBJECTIVE: Vital Signs Temperature 98.0 F 05/05/20 05:50 Pulse Rate 86 05/05/20 05:50 Respiratory Rate 20 05/05/20 05:50 Blood Pressure 98/61 05/05/20 05:50 O2 Sat by Pulse Oximetry (%) 97 05/04/20 21:00 GENERAL: The patient is awake, alert, in no acute distress. NECK: supple. LUNGS: Breath sounds equal, clear to auscultation bilaterally HEART: Regular rate and rhythm, S1, S2 ABDOMEN: Soft, nontender, nondistended, normoactive bowel sounds EXTREMITIES: 2+ pulses, warm, well-perfused, no edema. SKIN: Warm, dry, normal turgor Laboratory Results - last 24 hr 05/01/20 05/04/20 14:50 07:15 Neutrophils % (Manual) 58.8 Band Neutrophils % 4.1 Lymphocytes % (Manual) 26.8 D Monocytes % (Manual) 4 Eosinophils % (Manual) 0.0 D Basophils % (Manual) 0.0 Myelocytes % (Man) 3 H D Promyelocytes % (Man) 0 Blast Cells % (Manual) 0 Nucleated RBC % 0 Metamyelocytes 2 Hypochromia 0 Platelet Estimate Normal Polychromasia 0 Poikilocytosis 0 Anisocytosis 0 Microcytosis 0 Macrocytosis 0 COVID-19 (JENNIE) Not detected Active Medications Generic Name Dose Route Start Last Admin Trade Name Freq PRN Reason Stop Dose Admin Acetaminophen 650 mg 05/02/20 02:10 05/03/20 21:54 Tylenol - PO 650 mg Q6H PRN Administration FEVER Enoxaparin Sodium 40 mg 05/01/20 10:00 05/04/20 09:28 Lovenox - SQ 40 mg DAILY KAYLEE Administration Sodium Chloride 1,000 mls @ 100 mls/hr 05/01/20 02:00 05/05/20 02:29 Normal Saline - IV 100 mls/hr ASDIR KAYLEE Administration Meropenem 1 gm/ Dextrose 100 mls @ 200 mls/hr 05/03/20 18:00 05/05/20 02:29 IVPB 200 mls/hr Q8H-IV KAYLEE Administration ASSESSMENT/PLAN: Patient is a 25 yo M PMH of paraplegia, GERD, C2-C7 fx BIBA from [facility] for 1 day of fever and lower abdominal pain. Pt is admitted for pyelonephritis. #Sepsis 2/2 pyelonephritis - Urine culture - ESBL E.coli 05/03 - Blood cultures no growth - Renal US - negative - afebrile, leukocytosis trending down, will continue to monitor - Ceftriaxone switched to IV Meropenem 1gm q8h, Day 3 - Per request of patient's guardian (mother), patient will be discharged to home with home infusions of his abx - ID (Dr. Villatoro) consulted. Recommendations appreciated #Urinary incontinence likely 2/2 overflow - post void bladder scan >400 - Segura inserted, and patient pulled it out - Urology (Dr. Huston) consulted. Recommendations appreciated. - Recommend a suprapubic cystotomy when the patient is medically stable for procedure. - This will be the best form of diversion in a paraplegic. - Patient's guardian is considering to do procedure but outpatient. #F/E/N - IV NS @ 100 cc - monitor lytes - Regular diet #Prophylaxis -Lovenox 40mg sq daily #Disposition -full code -med surg Visit type - Emergency Visit Emergency Visit: Yes ED Registration Date: 05/01/20 Care time: The patient presented to the Emergency Department on the above date and was hospitalized for further evaluation of their emergent condition. - New Patient This patient is new to me today: No - Critical Care Critical Care patient: No ATTENDING PHYSICIAN STATEMENT I saw and evaluated the patient. I reviewed the resident's note and discussed the case with the resident. I agree with the resident's findings and plan as documented. SUBJECTIVE: OBJECTIVE: ASSESSMENT AND PLAN:
[2020-05-05] MEDS: ENOXAPARIN NA (PORCINE) 40 MG/0.4 ML DISP.SYRIN SQ SCH (09:28)
[2020-05-05 09:58] LABS: ALBUMIN 3.3 g/dl (3.4-5.0); BLOOD UREA NITROGEN 5.8 mg/dL (7-18); CALCIUM 9.2 mg/dL (8.5-10.1); MAGNESIUM 2.3 mg/dL (1.8-2.4); POTASSIUM 3.7 mmol/L (3.5-5.1)
[2020-05-05 10:05] LABS: BILIRUBIN,TOTAL 0.7 mg/dL (0.2-1); CREATININE 0.4 mg/dL (0.55-1.3); TOT PROT 7.1 g/dl (6.4-8.2)
[2020-05-05 13:14] LABS: ANISOCYTOSIS 0; MACROCYTOSIS 0; PLATELET ESTIMATE NORMAL
--- NOTE | 2020-05-05 23:29 | PN ---
DATE OF VISIT: DATE OF DICTATION: 05/05/2020 PROGRESS NOTE Patient is a 25-year-old paraplegic who has been having recurrent urinary tract infections and is constantly incontinent. His urine culture this time grew out E. coli ESBL producing. His temperature is 98, blood pressure 98/61, O2 saturation 97, white count 7.8, BUN/creatinine 5.8/0.4. 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 Again will recommend a suprapubic cystoscopy. Will talk to patient's mother who makes these decisions. This could be done as an outpatient or at this present admission. Will follow with you. Tasia [id number]
[2020-05-06] MEDS: SODIUM CHLORIDE 1,000 ML IV SCH ×3 (01:00→21:55)
[2020-05-06] MEDS ORDERED: MEROPENEM 1 GM VIAL (RESTRICTED TO ID) IVPB ONE ×3 (02:39→17:32)
[2020-05-06] MEDS ORDERED: DEXTROSE 5%-WATER 100 ML IVPB ONE ×3 (02:39→17:32)
[2020-05-06] MEDS: MEROPENEM 1 GM in DEXTROSE 5%-WATER 100 ML IVPB SCH ×3 (02:45→17:35)
--- NOTE | 2020-05-06 08:04 | PN ---
Teaching Attending Note Name of Resident: Mecca Jin ATTENDING PHYSICIAN STATEMENT I saw and evaluated the patient. I reviewed the resident's note and discussed the case with the resident. I agree with the resident's findings and plan as documented. SUBJECTIVE: OBJECTIVE: Vital Signs Temperature 97.8 F 05/06/20 05:05 Pulse Rate 73 05/06/20 05:05 Respiratory Rate 20 05/06/20 05:05 Blood Pressure 100/61 05/06/20 05:05 O2 Sat by Pulse Oximetry (%) 97 05/05/20 21:00 General: Young man comfortable, not in distress HEENT mucous membranes moist, no anemia, no jaundice, PERRLA, no nystagmus Neck: No JVD, supple, no bruit, thyroid palpably normal, normal carotid pulsations. Chest: Nontender, clear to auscultation bilaterally CVS: S1-S2 regular no murmur/gallop/rub Abdomen: Palpable urinary bladder: Nondistended, soft, bowel sounds present. 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 , bilateral paraplegia traumatic no gross motor sensory deficit Active Medications Active Medications Acetaminophen (Tylenol -) 650 mg PO Q6H PRN PRN Reason: FEVER Last Admin: 05/03/20 21:54 Dose: 650 mg Documented by: Enoxaparin Sodium (Lovenox -) 40 mg SQ DAILY [facility] Last Admin: 05/06/20 09:02 Dose: 40 mg Documented by: Sodium Chloride (Normal Saline -) 1,000 mls @ 100 mls/hr IV ASDIR [facility] Last Admin: 05/06/20 01:00 Dose: 100 mls/hr Documented by: Meropenem 1 gm/ Dextrose 100 mls @ 200 mls/hr IVPB Q8H-IV [facility] Last Admin: 05/06/20 09:01 Dose: 200 mls/hr Documented by: ASSESSMENT AND PLAN:25-year-old man paraplegic with contractures presented UTI with sepsis grew ESBL E. coli with urinary retention, evaluated by recommended suprapubic cystostomy for retention overflow. UTI with sepsis: Continue meropenem antibiotic day 4 remained afebrile Urinary retention: Due to paraplegia required suprapubic cystostomy for recurrent UTI. If patient is not willing for suprapubic cystostomy can be discharged [facility] suprapubic cystostomy can be performed as an outpatient will discuss with family Traumatic paraplegia: DVT prophylaxis.
[2020-05-06] MEDS: ENOXAPARIN NA (PORCINE) 40 MG/0.4 ML DISP.SYRIN SQ SCH (09:02)
--- NOTE | 2020-05-06 14:09 | PN ---
Physical Exam: SUBJECTIVE: Patient seen and examined OBJECTIVE: Vital Signs Temperature 98.0 F 05/06/20 10:00 Pulse Rate 78 05/06/20 10:00 Respiratory Rate 20 05/06/20 10:00 Blood Pressure 108/66 05/06/20 10:00 O2 Sat by Pulse Oximetry (%) 96 05/06/20 10:00 GENERAL: The patient is awake, alert, in no acute distress. NECK: supple. LUNGS: Breath sounds equal, clear to auscultation bilaterally HEART: Regular rate and rhythm, S1, S2 ABDOMEN: Soft, nontender, nondistended, normoactive bowel sounds EXTREMITIES: 2+ pulses, warm, well-perfused, no edema. SKIN: Warm, dry, normal turgor Active Medications Generic Name Dose Route Start Last Admin Trade Name Freq PRN Reason Stop Dose Admin Acetaminophen 650 mg 05/02/20 02:10 05/03/20 21:54 Tylenol - PO 650 mg Q6H PRN Administration FEVER Enoxaparin Sodium 40 mg 05/01/20 10:00 05/06/20 09:02 Lovenox - SQ 40 mg DAILY KAYLEE Administration Sodium Chloride 1,000 mls @ 100 mls/hr 05/01/20 02:00 05/06/20 01:00 Normal Saline - IV 100 mls/hr ASDIR KAYLEE Administration Meropenem 1 gm/ Dextrose 100 mls @ 200 mls/hr 05/03/20 18:00 05/06/20 09:01 IVPB 200 mls/hr Q8H-IV KAYLEE Administration ASSESSMENT/PLAN: Patient is a 25 yo M PMH of paraplegia, GERD, C2-C7 fx BIBA from [facility] for 1 day of fever and lower abdominal pain. Pt is admitted for pyelonephritis. #Sepsis 2/2 pyelonephritis - Urine culture - ESBL E.coli 05/03 - Blood cultures no growth - Renal US - negative - afebrile, leukocytosis trending down, will continue to monitor - Ceftriaxone switched to IV Meropenem 1gm q8h, Day 4 - Per request of patient's guardian (mother), patient will be discharged to home with home infusions of his abx - ID (Dr. Villatoro) consulted. Recommendations appreciated #Urinary incontinence likely 2/2 overflow - post void bladder scan >400 - Segura inserted, and patient pulled it out - Urology (Dr. Huston) consulted. Recommendations appreciated. - Recommend a suprapubic cystotomy when the patient is medically stable for procedure. - This will be the best form of diversion in a paraplegic. - Patient's guardian is considering to do procedure but outpatient. #F/E/N - IV NS @ 100 cc - monitor lytes - Regular diet #Prophylaxis -Lovenox 40mg sq daily #Disposition -full code -med surg Visit type - Emergency Visit Emergency Visit: Yes ED Registration Date: 05/01/20 Care time: The patient presented to the Emergency Department on the above date and was hospitalized for further evaluation of their emergent condition. - New Patient This patient is new to me today: No - Critical Care Critical Care patient: No ATTENDING PHYSICIAN STATEMENT I saw and evaluated the patient. I reviewed the resident's note and discussed the case with the resident. I agree with the resident's findings and plan as documented. SUBJECTIVE: OBJECTIVE: ASSESSMENT AND PLAN:
--- NOTE | 2020-05-06 15:30 | DS ---
Physical Exam: SUBJECTIVE: Patient seen and examined OBJECTIVE: Vital Signs Period Temp Pulse Resp BP Sys/Yoo Pulse Ox Last 24 Hr 97.7 F-98.4 F 73-101 20-20 100-108/61-71 96-97 PHYSICAL EXAM GENERAL: The patient is awake, alert, in no acute distress. NECK: supple. LUNGS: Breath sounds equal, clear to auscultation bilaterally HEART: Regular rate and rhythm, S1, S2 ABDOMEN: Soft, nontender, nondistended, normoactive bowel sounds EXTREMITIES: 2+ pulses, warm, well-perfused, no edema. SKIN: Warm, dry, normal turgor LABS HOSPITAL COURSE: Date of Admission:05/01/20 Date of Discharge: 05/06/20 #Sepsis 2/2 pyelonephritis - Urine culture - ESBL E.coli 05/03 - Blood cultures no growth - Renal US - negative - afebrile, leukocytosis trending down, will continue to monitor - Iv MEropenem given. MAy be switched to IV Ertapenem upon discharge. - ID (Dr. Villatoro) consulted. Recommendations appreciated #Urinary incontinence likely 2/2 overflow - post void bladder scan >400 - Segura inserted, and patient pulled it out - Urology (Dr. Huston) consulted. Recommendations appreciated. - Recommend a suprapubic cystotomy when the patient is medically stable for procedure. - Patient and guardian opted for intermittent self-catheterization at this time Patient medically stable for discharge back to [facility] to complete IV Ertapenem 1gm daily for 6 more days. Minutes to complete discharge: 37 Discharge Summary Problems reviewed: Yes Reason For Visit: PYELONEPHRITIS Current Active Problems Sepsis (Acute) UTI (urinary tract infection) (Acute) Condition: Stable - Instructions Diet, Activity, Other Instructions: Your visit You were admitted in the hospital because you had a urinary tract infection. This was likely because you were retaining urine because the nerve responsible for you to urinate was affected by the accident. As a result, the retained urine becomes a breeding ground for a bacterial infection, thus the urinary tract infection. You were evaluated by the urologist, and you opted for intermittent self-catheterization at this time. You will also need to continue IV antibiotics for 6 days. Care will need intermittent catheterization for retained urine. Medications You will continue to receive IV Ertapenem 1 gm for 6 more days. Please continue your other home medications. Follow up Please follow up with your primary care doctor within 1 week. Please follow up with the urologist (Dr. Huston) in 1-2 weeks. A referral has been provided. Additional info Please call 911 or go to the ED if with any worsening fever, chills, headache, dizziness, chest pain, shortness of breath, belly pain, or any new concerns noted. Referrals: Sherin Maldonado [Primary Care Provider] - Erik Huston MD [Staff Physician] - Disposition: HOME - Home Medications Comprehensive Discharge Medication List: Ambulatory Orders Aa/Hydrolyzed Collagen, Whey [Lps 15-30 Liquid] 30 ml PO BID 05/01/20 Docusate Sodium [Colace -] 300 mg PO HS 05/01/20 Duloxetine HCl [Cymbalta -] 40 mg PO DAILY 05/01/20 Gabapentin [Neurontin -] 400 mg PO Q8H 05/01/20 Ipratropium/Albuterol Sulfate [Iprat-Albut 0.5-3(2.5) mg/3 ml] 3 ml PO TID 05/01/20 Lactulose 20 ml PO BID PRN 05/01/20 Lidocaine [Aspercreme Lidocaine] 1 patch TD DAILY 05/01/20 Mag Hydrox/Al Hydrox/Simeth [Mylanta Oral Suspension -] 30 ml PO TID PRN 05/01/20 Omeprazole Magnesium [Prilosec Otc] 20 mg PO DAILY 05/01/20 Ondansetron [Zofran -] 4 mg PO TID PRN 05/01/20 Polyethylene Glycol 3350 [Miralax 255 gm Btl -] 17 gm PO DAILY PRN 05/01/20 Sennosides [Senna] 2 tab PO DAILY PRN 05/01/20 Sodium Phosphate,Reynolds-Dibasic [Fleet Enema] 1 can HI DAILY 05/01/20 Tamsulosin HCl [Flomax -] 0.8 mg PO DAILY 05/01/20 Tizanidine HCl [Zanaflex (Nf) -] 4 mg PO Q8H 05/01/20 Ertapenem Sodium - 1 Gram [Invanz (Pre-Docked)] 1 gm IVPB DAILY 6 Days bag 05/06/20 This patient is new to me today: No Emergency Visit: Yes ED Registration Date: 05/01/20 Care time: The patient presented to the Emergency Department on the above date and was hospitalized for further evaluation of their emergent condition. Critical Care patient: No - Discharge Referral Referred to [facility] No ATTENDING PHYSICIAN STATEMENT I saw and evaluated the patient. I reviewed the resident's note and discussed the case with the resident. I agree with the resident's findings and plan as documented. SUBJECTIVE: OBJECTIVE: ASSESSMENT AND PLAN:
[2020-05-07] MEDS ORDERED: MEROPENEM 1 GM VIAL (RESTRICTED TO ID) IVPB ONE ×3 (00:46→16:54)
[2020-05-07] MEDS ORDERED: DEXTROSE 5%-WATER 100 ML IVPB ONE ×3 (00:47→16:54)
[2020-05-07] MEDS: MEROPENEM 1 GM in DEXTROSE 5%-WATER 100 ML IVPB SCH ×3 (01:45→17:00)
[2020-05-07] MEDS: SODIUM CHLORIDE 1,000 ML IV SCH ×2 (02:14→09:27)
--- NOTE | 2020-05-07 07:45 | PN ---
Teaching Attending Note Name of Resident: Mecca Jin ATTENDING PHYSICIAN STATEMENT I saw and evaluated the patient. I reviewed the resident's note and discussed the case with the resident. I agree with the resident's findings and plan as documented. SUBJECTIVE: Comfortable afebrile OBJECTIVE: Vital Signs Temperature 98.4 F 05/07/20 06:00 Pulse Rate 76 05/07/20 06:00 Respiratory Rate 18 05/07/20 06:00 Blood Pressure 90/64 05/07/20 06:00 O2 Sat by Pulse Oximetry (%) 97 05/06/20 21:00 General: Young man comfortable, not in distress HEENT mucous membranes moist, no anemia, no jaundice, PERRLA, no nystagmus Neck: No JVD, supple, no bruit, thyroid palpably normal, normal carotid pulsations. Chest: Nontender, clear to auscultation bilaterally CVS: S1-S2 regular no murmur/gallop/rub Abdomen: Palpable urinary bladder: Nondistended, soft, bowel sounds present. 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 , bilateral paraplegia traumatic no gross motor sensory deficit Active Medications Acetaminophen (Tylenol -) 650 mg PO Q6H PRN PRN Reason: FEVER Last Admin: 05/03/20 21:54 Dose: 650 mg Documented by: Enoxaparin Sodium (Lovenox -) 40 mg SQ DAILY [facility] Last Admin: 05/06/20 09:02 Dose: 40 mg Documented by: Sodium Chloride (Normal Saline -) 1,000 mls @ 100 mls/hr IV ASDIR [facility] Last Admin: 05/07/20 02:14 Dose: Not Given Documented by: Meropenem 1 gm/ Dextrose 100 mls @ 200 mls/hr IVPB Q8H-IV [facility] Last Admin: 05/07/20 01:45 Dose: 200 mls/hr Documented by: CBC, BMP 05/05/20 09:01 05/05/20 09:01 ASSESSMENT AND PLAN:25-year-old man paraplegic with contractures presented UTI with sepsis grew ESBL E. coli with urinary retention, evaluated by GURDEEP zavala suprapubic cystostomy for retention overflow. UTI with sepsis: Continue meropenem antibiotic day 4 remained afebrile Urinary retention: Due to paraplegia required suprapubic cystostomy for recur rent UTI. If patient is not willing for suprapubic cystostomy can be discharged on 2 weeks of IV antibiotic at custodial suprapubic cystostomy can be performed as an outpatient will discuss with family Traumatic paraplegia: DVT prophylaxis.
[2020-05-07] MEDS: ENOXAPARIN NA (PORCINE) 40 MG/0.4 ML DISP.SYRIN SQ SCH (10:56)
[2020-05-07 12:55] VITALS: BMI 21.6
[2020-05-07 14:42] VITALS: BP 95/60; PULSE 74; TEMP 98.8
== END 2020-05-07 18:45 | disposition home or self-care (01) | DRG 720 ==
LOC: JER 19:46 → JERBED 05-01 00:13 → J6S 05-01 18:42
PROVIDERS: ADMIT Internal Medicine; ATTEND Internal Medicine
PROC: 02HV33Z Insertion of Infusion Device into Superior Vena Cava, Percutaneous Approach (ICD-10-PCS; principal; 2020-05-07)
PROC: B518ZZA Fluoroscopy of Superior Vena Cava, Guidance (ICD-10-PCS; 2020-05-07)
DX: A41.89 Other specified sepsis (principal); M54.5 Low back pain; G82.20 Paraplegia, unspecified; K21.9 Gastro-esophageal reflux disease without esophagitis; E87.6 Hypokalemia; D72.829 Elevated white blood cell count, unspecified; E87.2 Acidosis; N39.0 Urinary tract infection, site not specified; B96.20 Unspecified Escherichia coli [E. coli] as the cause of diseases classified elsewhere; N31.9 Neuromuscular dysfunction of bladder, unspecified; R33.9 Retention of urine, unspecified
CPT/HCPCS: 36415; 36569; 71045-TC-FY; 76775-TC; 77001-TC-FY; 80053; 81003; 83036; 83605; 83735; 84100; 84443; 84484; 85025; 85610; 85730; 87040; 87086; 87186; 93005; 93010; 99285-25; C1751; U0003